=== PATIENT | male | born 1995 | race Two or more races ===

== ENCOUNTER 2021-11-14 20:47 | Emergency (ER) | payer SELFPAY ==
[~2021-11-14] VITALS: Ht 200.7 cm; Wt 300.0 kg
[2021-11-14 21:00] VITALS: BP 160/100
== END 2021-11-14 22:51 | disposition left against medical advice (07) ==
LOC: ER 20:47 → EDBD 20:47 → ER 22:51
DX: M25.552 Pain in left hip (principal); M25.512 Pain in left shoulder; R07.89 Other chest pain; Z88.1 Allergy status to other antibiotic agents; Z53.29 Procedure and treatment not carried out because of patient's decision for other reasons; V43.52XA Car driver injured in collision with other type car in traffic accident, initial encounter; Y93.89 Activity, other specified; Y92.410 Unspecified street and highway as the place of occurrence of the external cause; Y99.8 Other external cause status
CPT/HCPCS: 70450; 71045; 72125; 73030; 73502; 93005